=== PATIENT | male | born 1995 | race Hispanic/Latino ===

== ENCOUNTER 2021-03-02 14:25 | Emergency (ER) | payer SELFPAY ==
[2021-03-02] MEDS ORDERED: Naproxen 500 MG TAB ONE (18:13)
== END 2021-03-02 18:11 | disposition home or self-care (01) ==
LOC: CSHERS 14:25
DX: S29.012A Strain of muscle and tendon of back wall of thorax, initial encounter (principal); F17.200 Nicotine dependence, unspecified, uncomplicated
CPT/HCPCS: 99283